=== PATIENT | female | born 1950 | race Caucasian/White ===

== ENCOUNTER → 2016-06-12 05:27 | Day surgery (SDC) | payer MEDICARE ==
[2016-06-10 11:01] LABS: HEMATOCRIT 35.9 % (36.0-48.0); HEMOGLOBIN 11.6 g/dL (12-16); MCH 28.6 pg (26.0-34.0); MCHC 32.3 g/dL (31.0-37.0); MCV 88.6 fL (80.0-100.0); RBC 4.05 10x6/uL (4.00-5.40); RDW 15.1 % (11.5-14.5); WBC 5.6 10x3/uL (4.8-10.8)
[2016-06-10 11:09] LABS: CALC OSMOLALITY 286 mosm/kg (275-300); CALCIUM 9.3 mg/dL (8.5-10.1); CARBON DIOXIDE 33.3 mmol/L (21.0-32.0); CHLORIDE - SERUM 104 mmol/L (98-107); CREATININE - SERUM 0.7 mg/dL (0.6-1.3); GLUCOSE 111 mg/dL (74-106); POTASSIUM - SERUM 3.9 mmol/L (3.5-5.1); SODIUM 142 mmol/L (136-145); UREA NITROGEN 20 mg/dL (7-18); eGFR NON AFRICAN AMERICAN 88 mL/min (90-120)
[~2016-06-12] VITALS: Ht 154.9 cm; Wt 66.7 kg
[~2016-06-12 05:27] MED LIST: BREO ELLIPTA 11 EACH INH; CALCIUM 600+D T1 TA1 PO; COZAAR100 MG PO; FLAGYL500 MG PO; HYDROCHLOROTH12.5 M1 PO; HYDROCODON-ACE1 EAC7 PO; K-TAB10 MEQ PO; LEVAQUIN500 MG PO; MACRODANTIN100 MG PO; METOPROLOL TAR100 M1 PO; METOPROLOL TART50 MG PO; MULTIPLE VITAMI1 TA1 PO; NORVASC5 MG PO; POTASSIUM CHLO10 ME1 PO; PRAVACHOL20 MG; PRAVACHOL20 MG PO; PROTONIX40 MG PO; SYNTHROID75 MCG PO; VITAMIN B-121000 MCG PO; VITAMIN D2000 UNIT PO
[2016-06-12 11:57] VITALS: BP 140/68; Ht 154.9 cm; Wt 66.7 kg
--- NOTE | 2016-07-17 09:40 | OP ---
PATIENT NAME: PAULINO GONSALVES MEDICAL RECORD: [id number] :46 LOCATION:D.OPS ADMISSION DATE: SURGEON: LIBRADO BUCKLEY MD DATE OF OPERATION: 06/12/2016 PREOPERATIVE DIAGNOSES: 1. Abnormal appearance of the rectum on CT scan. The radiologist describes it as some thickening. 2. Melena. 3. Postoperative subcutaneous fluid collection in the suprapubic area. POSTOPERATIVE DIAGNOSES: 1. Abnormal appearance of the rectum on CT scan. The radiologist describes it as some thickening. 2. Melena. 3. Postoperative subcutaneous fluid collection in the suprapubic area. The subcutaneous fluid collection was a liquefied hematoma. 4. Polypoid lesion, which could be scar tissue, a polyp or a polypoid mass at the colorectal anastomosis. PROCEDURES: 1. Total colonoscopy to the cecum. 2. Hot biopsies with cautery of the anastomotic polypoid lesion. 3. Incision and drainage of subcutaneous hematoma, which was well formed and had a rind around it. 4. Tattooing of the polypoid lesion at anastomosis. SURGEON: Librado Buckley MD FAMILY MEMBER CARETAKER: None. BLOOD LOSS: Minimal. ANESTHESIA: General. COMPLICATIONS: None. The risks, possible complications and alternatives to procedure were explained to the patient. She elects to proceed. Her colonic operation was for diverticular disease. I have reviewed the pathology report and there was no evidence of a neoplasm in the resected specimen. This polypoid lesion that was noted today is an unexpected finding and it was right at the anastomosis. OPERATIVE COURSE: The patient was conveyed to the operating room electively on 06/12/2016. General anesthesia was induced by anesthesia staff. The patient was placed in the King position. A digital rectal examination was performed. A colonoscope was inserted through the anus. It was easily advanced to the cecum. Upon withdrawal, I irrigated and aspirated extensively. The prep was excellent. There were a few scattered diverticula. I dragged the folds. The pullback was greater than a 14-minute pullback. A polypoid lesion was a 2.5 cm lesion. This was thoroughly biopsied. There was a secondary of lesion, which was about a 5-mm lesion that was noted several centimeters away on the anastomosis as well. This was biopsied as well. The biopsies were combined OPERATIVE REPORT [id number] PAULINO GONSALVES biopsies. I then cauterized the area. After a thorough cautery of the area for hemostasis, I advanced a sclerotherapy needle. I then performed a submucosal injection of 3 cc of Mar ink at the site where the polypoid lesion had been so that I could identify in the future should resection or further biopsies be indicated. The endoscope was withdrawn into the rectum. A retroflexed views obtained in the rectum. I then unretroflexed the scope and removed it under direct vision. The patient was then positioned supine. The abdomen was sterilely prepped and draped. A small incision was accomplished within the patient's Pfannenstiel scar. I tried to enter a pocket of fluid and was really unable to do so. I had widened my incision. I identified the pocket of fluid and incised into it. There was liquified hematoma without any odor. Cultures were obtained. The liquefied hematoma was aspirated in its entirety. The subdermis was approximated with interrupted 3-0 Vicryls. The skin was approximated with a running intracuticular 3-0 Vicryl. Benzoin and Steri-Strips were applied. The patient was then extubated and conveyed to post-anesthesia care unit where she was in stable condition. As she has an unexpected finding during this operative procedure, I want to see her back in my office on to review the pathology results with her. TRANSINT:[id number] Voice Confirmation ID: [id number] DOCUMENT ID: [id number] LIBRADO BUCKLEY MD at 0940 CC: TANYA BOLDEN MD [id number] DICTATION DATE: 06/12/16 1514 THORACIC MEDICINE PHYSICIAN: 06/12/162007 [facility] 06/12/[address] [facility] [address] [place] [address]
--- NOTE | 2016-07-17 09:40 | HP ---
PATIENT: PALUINO GONSALVES MEDICAL RECORD: [id number] ACCOUNT: [id number] LOCATION:PAULIE : 46 ADMISSION DATE: 06/12/16 HISTORY AND PHYSICAL EXAMINATION CHIEF COMPLAINT: Thickening of the rectal wall on CAT scan, also a postoperative subcutaneous fluid collection. HISTORY OF PRESENT ILLNESS: The patient underwent a hand-assisted laparoscopic sigmoid colectomy on 02/25/2016 due to a history of sigmoid diverticular abscess. The patient's primary care physician is Dr. Garo Aguilar. She now has a subcutaneous mass, which I am going to plan to incise and drain and perhaps place a drain. Also, perform a colonoscopy. She has had some melena. A CT scan was performed and it was suspicious for a rectal lesion and some thickening of the rectum. I have personally reviewed the CT images. The CT scan revealed a 9.4 cm fluid collection in the anterior abdominal wall superficial to the rectus musculature, most consistent with a seroma. This was on 04/15/2016. There is interval partial sigmoid resection with a satisfactory appearance of the anastomosis with surrounding inflammatory changes. There is asymmetric thickening of the rectal wall, which was nonspecific and raised the concern for malignancy. This had a similar appearance on a previous study. Endoscopy was recommended for better evaluation. HOME MEDICATIONS: Last list of home medicines I have for the patient includes B12, Cozaar, hydrochlorothiazide, levothyroxine, metoprolol, omeprazole, pravastatin, Protonix, and vitamin D3. PAST MEDICAL AND SURGICAL HISTORY: Hyperlipidemia, gastroesophageal reflux, hypertension, hypothyroidism, on replacement therapy, thyroid nodule, essential bradycardia, urinary tract infectious diseases, actinic keratoses, hip pain, low back pain, malaise, fatigue, and loss of appetite. As described above, also hysterectomy, also colonoscopy by Dr. Powell in 2000. FAMILY HISTORY: Father had a cerebrovascular accident. Mother had history of vascular accident as well as hypertensive disorder. SOCIAL HISTORY: Homemaker. She has never smoked. PHYSICAL EXAMINATION: GENERAL: No fever or chills. ALLERGIES: CODEINE AND MORPHINE. PHYSICAL EXAMINATION: GENERAL: The patient does not appear acutely ill. She does not appear chronically ill. VITAL SIGNS: Reviewed. HEAD: External ears appear normal. EYES: Extraocular movements are intact. NECK: Trachea is midline. CHEST: No intercostal retractions. PULMONARY: Nonlabored, no stridor. ABDOMEN: Nontender except over the subcutaneous mass which is in the suprapubic area just to the right. HISTORY AND PHYSICAL [id number] PAULINO GONSALVES IMPRESSION: 1. Suspicious area on CT scan with thickening of the rectal wall. We need to rule out malignancy. 2. Postoperative subcutaneous fluid collection, likely a seroma or hematoma. PLAN: Drainage and subcutaneous fluid collection, postoperative. Also, colonoscopy. TRANSINT:[id number] Voice Confirmation ID: [id number] DOCUMENT ID: [id number] LIBRADO BUCKLEY MD at 0940 CC: [id number] DICTATION DATE: 06/12/16 1238 GROUP LEADER SEMICONDUCTOR PROCESSING: 06/12/16 1329 [facility] 06/12/[address] [address]
== END | disposition home or self-care (01) ==
LOC: D.OPS 05:27 → D.PAN 12:30 → D.OPS 12:30 → D.PAN 13:45
PROVIDERS: Anesthesiology
DX: K63.5 Polyp of colon (principal); L76.32 Postprocedural hematoma of skin and subcutaneous tissue following other procedure; Z88.5 Allergy status to narcotic agent

== ENCOUNTER → 2016-08-17 16:36 | Outpatient (CLI) | payer MEDICARE ==
[2016-06-12 11:57] VITALS: BMI 27.8
== END | disposition home or self-care (01) ==
LOC: D.MAMMO 13:15
DX: Z12.31 Encounter for screening mammogram for malignant neoplasm of breast (principal)

== ENCOUNTER 2017-01-18 14:23 | Inpatient (IN) | payer MEDICARE ==
--- NOTE | 2017-01-18 18:15 | NUR ---
RECEIVED TO ROOM 2207 VIA . A/O X3. DENIES NEEDS. AT BEDSIDE. DENIES NEEDS. REPORTS ABDOMINAL PAIN AT LEVEL 8. SKIN IS INTACT WTIHOUT REDNESS.
[2017-01-18 18:41] VITALS: BP 113/74
[2017-01-18 19:21] LABS: BASOPHILS 0 % (0-2); EOSINOPHILS 0 % (0-7); HEMATOCRIT 36.2 % (36.0-48.0); HEMOGLOBIN 12.3 g/dL (12-16); IMMATURE GRANULOCYTES 0.5 % (0-5); LYMPHOCYTES 6.9 % (15-50); MCH 29.7 pg (26.0-34.0); MCV 87.4 fL (80.0-100.0); MONOCYTES 3.7 % (2-11); NEUTROPHILS 88.9 % (40-80); RBC 4.14 10x6/uL (4.00-5.40); RDW 14.5 % (11.5-14.5); WBC 17.2 10x3/uL (4.8-10.8)
[2017-01-18 19:25] LABS: PLATELET COUNT 201 10x3/uL (130-400)
--- NOTE | 2017-01-18 19:40 | NUR ---
RECIEVED SHIFT REPORT. PT IS LYING IN BED. ALERT AND ORIENTED AND ABLE TO VERBALIZE NEEDS. PT IS AMBULATORY BUT WAS INSTRUCTED TO CALL FOR ANY ASSISTANCE NEEDED. PT STATES PAIN IS 9/10. NO NEEDS ARE VERBALIZED AT THIS TIME. WILL CONTINUE TO MONITOR. VISITOR IS AT THE BEDSIDE. SIDE RAILS ARE UP X 2. BED IS IN LOWEST POSITION. CALL LIGHT IS WITHIN REACH.
[2017-01-18 19:42] LABS: INR 3.27 (0.85-1.17); PROTIME 33.6 SECONDS (11.6-15.0)
[2017-01-18 20:00] LABS: ALBUMIN 3.6 g/dL (3.4-5.0); ANION GAP 14.7 mmol/L (8-16); BILIRUBIN - TOTAL 1.2 mg/dL (0.2-1.3); CALCIUM 9.1 mg/dL (8.5-10.1); CARBON DIOXIDE 26.6 mmol/L (21.0-32.0); CREATININE - SERUM 1.6 mg/dL (0.6-1.3); POTASSIUM - SERUM 3.3 mmol/L (3.5-5.1); PROTEIN - SERUM 6.4 g/dL (6.4-8.2)
--- NOTE | 2017-01-18 20:20 | NUR ---
ADMIT ASSESSMENT COMPLETED. IV SITED TO RIGHT WRIST X 1 ATTEMPT. 20G. GOOD BLOOD RETURN. FLUSHES W/O DIFFICULTY. HOMICIDE SQUAD COMMANDING OFFICER INITIATED. CALL PLACED TO HEBER DUE TO PT BEING ORDERED MORPHINE HOMICIDE SQUAD COMMANDING OFFICER AND PT IS ALLERGIC. NEW ORDERS RECIEVED. FLUID BOLUS STARTED PER ORDER. NO NEEDS ARE VOICED. WILL MONITOR. VISITOR AT BEDSIDE. SIDE RAILS X 2. BED LOW. CALL LIGHT IN REACH.
--- NOTE | 2017-01-18 20:37 | NUR ---
DILAUDID AUTO DESIGN DETAILER HOOKED UP PER ORDER. PT INSTRUCTED ON USE. ORDER FOR HOLBROOK CATHETER. PT REQUESTING TO NOT HAVE HOLBROOK PLACED UNTIL TOMORROW. NO FURTHER NEEDS AT THIS TIME. WILL MONITOR. SIDE RAILS X 2. BED LOW. CALL LIGHT IN REACH.
[2017-01-18 22:27] VITALS: BP 116/64
[2017-01-19] VITALS: BP 126/61
[2017-01-19 02:31] VITALS: BP 113/74; BMI 26.8
[2017-01-19 04:07] LABS: BASOPHILS 0 % (0-2); EOSINOPHILS 0 % (0-7); HEMATOCRIT 31.4 % (36.0-48.0); HEMOGLOBIN 10.5 g/dL (12-16); IMMATURE GRANULOCYTES 0.2 % (0-5); LYMPHOCYTES 5.4 % (15-50); MCH 29.4 pg (26.0-34.0); MCHC 33.4 g/dL (31.0-37.0); MONOCYTES 4.4 % (2-11); PLATELET COUNT 188 10x3/uL (130-400); RBC 3.57 10x6/uL (4.00-5.40); RDW 14.5 % (11.5-14.5)
[2017-01-19 04:20] LABS: ANION GAP 10.6 mmol/L (8-16); CALCIUM 8.3 mg/dL (8.5-10.1); CARBON DIOXIDE 25.7 mmol/L (21.0-32.0); CREATININE - SERUM 1.2 mg/dL (0.6-1.3); POTASSIUM - SERUM 3.3 mmol/L (3.5-5.1)
--- NOTE | 2017-01-19 07:30 | NUR ---
PT ASSESSMENT COMPLETE NO DISTRESS NOTED SEE FLOWSHEET CALL LIGHT IN REACH SIDE RAILS UP X 2 ALL ALDS PER STAFF ASSIST. NPO FOR OR TODAY WITH DR BUCKLEY FOR EXPLORATORY LAP WITH REINIER ROLAND PROCEEDURE.
[2017-01-19 08:34] VITALS: BP 118/59
--- NOTE | 2017-01-19 10:07 | NUR ---
Patient Name: PAULINO GONSALVES Admission Status: Elective Accout number: [id number] Admission Date: 01-18-2017 : 1950 Admission Diagnosis: Attending: TANYA BOLDEN Current LOS: 1 Anticipated DC Date: Planned Disposition: Home Primary Insurance: MEDICARE A & B Discharge Planning Comments: CM met with patient to assess discharge planning needs. Patient lives independently at home with her . She stated that she is independent with her daily care and denies any need of HH at this time. She did state that she has had HH in the past and used [facility]. Patient has 5 steps to enter in her home with a rail. Patient has a cane, walker, wheelchair, shower chair. CM will continue to follow and assist with discharge planning needs. PCP: Yuan Fields in [facility] () [phone] Jewel Gauger: Hayley Byrne * Is the patient Alert and Oriented? Yes 0 * How many steps to enter\exit or inside your home? 5 0 * PCP YUAN 0 * Pharmacy [facility] 0 * Preadmission Environment Home with Family 0 * ADLs Independent 0 * Equipment Cane Elevated [place] Seat Shower Chair Walker Wheelchair 0 * List name and contact numbers for known caregivers / representatives who currently or will assist patient after discharge: NINI () [phone] 0 * Community resources currently utilized None 0 * Please name any agencies selected above. HAS USED [facility] IN THE PAST 0 * Additional services required to return to the preadmission environment? No 0 * Has this patient been hospitalized within the prior 30 days at any hospital? No 0 Grand Total: 0
--- NOTE | 2017-01-19 10:30 | NUR ---
NO DISTRESS NOTED REMAINS NPO AWAITING SURGERY
[2017-01-19 11:45] VITALS: BP 125/64
--- NOTE | 2017-01-19 12:00 | NUR ---
PT PREOPPED FOR OR HOLBROOK CATH PLACED PER STERILE TECHNIQUE ALL PARTS OF KIT USED TOLERATED WELL IMMEDIATE RETURN OF CONCENTRATED YELLOW URINE TO DRAIN BAG.
[2017-01-19 13:37] VITALS: BMI 30.3
--- NOTE | 2017-01-19 14:40 | NUR ---
LAPAROSCOPIC LAVAGE AND DRAIN PLACEMENT
--- NOTE | 2017-01-19 14:42 | NUR ---
20CC OF PINK FLUID REMOVED FROM #1 YOLI DRAIN AND 80CC REMOVED FROM YOLI#2 @3704
[2017-01-19 15:00] VITALS: BP 118/60
--- NOTE | 2017-01-19 16:45 | NUR ---
PT RETURNED TO ROOM FROM RR NGT TO RIGHT NARE TO LIWS DRAINS X 2 NOTED TO ABDOMEN DRESSING X 3
--- NOTE | 2017-01-19 19:14 | NUR ---
PT IS LYING IN BED WITH TV ON. SPOUSE IN CHAIR AT BEDSIDE. PT STATED PAIN IS AT A 1 AND AIR/OCEAN EXPORT CLERK IS HELPING. BREATH SOUNDS CLEAR IN UPPER AND LOWER LOBES. NO SIGNS OF DISTRESS, BED IN LOW POSITION CALL LIGHT IN REACH, CONTINUE WITH CARE PLAN
[2017-01-19 20:00] VITALS: BP 121/62
[2017-01-20] VITALS: BP 133/72
--- NOTE | 2017-01-20 02:00 | NUR ---
PT IN BED WITH NO DISTRESS. RESPIRATIONS EVEN AND UNLABORED. VISITOR AT BEDSIDE. SIDE RAILS X 2. BED IS LOW. CALL LIGHT IN REACH.
[2017-01-20 04:00] VITALS: BP 145/66
[2017-01-20 04:56] LABS: BASOPHILS 0.1 % (0-2); EOSINOPHILS 0.6 % (0-7); HEMATOCRIT 31.5 % (36.0-48.0); HEMOGLOBIN 10.7 g/dL (12-16); IMMATURE GRANULOCYTES 0.3 % (0-5); LYMPHOCYTES 9.9 % (15-50); MCH 29.9 pg (26.0-34.0); MONOCYTES 5.8 % (2-11); NEUTROPHILS 83.3 % (40-80); PLATELET COUNT 187 10x3/uL (130-400); RBC 3.58 10x6/uL (4.00-5.40); RDW 14.6 % (11.5-14.5); WBC 10.4 10x3/uL (4.8-10.8)
[2017-01-20 05:07] LABS: ANION GAP 11.9 mmol/L (8-16); CALCIUM 8.4 mg/dL (8.5-10.1); CARBON DIOXIDE 22.8 mmol/L (21.0-32.0); POTASSIUM - SERUM 3.7 mmol/L (3.5-5.1)
--- NOTE | 2017-01-20 07:10 | NUR ---
AWAKE AND ALERT AT THIS TIME. RESPIRATIONS EVEN AND NON LABORED. NG TUBE TO RIGHT NARE PATENT AND CONNECTED TO LOW INTERMITTENT SUCTION. HOLBROOK AND YOLI DRAINS PATENT. SCD'S ON AND CALL LIGHT IN REACH. BLOWER INSTALLER IN USE. DENIES NEEDS AT THIS TIME. PT REMAINS NPO. WILL CONTINUE WITH PLAN OF CARE.
--- NOTE | 2017-01-20 07:11 | HP ---
PATIENT: PAULINO GONSALVES MEDICAL RECORD: [id number] ACCOUNT: [id number] LOCATION:D.MS [place]7 : 46 ADMISSION DATE: 01/18/17 HISTORY AND PHYSICAL EXAMINATION DATE OF ADMISSION: 01/18/2017 CHIEF COMPLAINT: Abdominal pain. HISTORY OF PRESENT ILLNESS: The patient is a 66-year-old female who states for the past couple of days, she has had decreasing appetite, low-grade fever, also complained of diffuse lower abdominal discomfort. PAST MEDICAL HISTORY: Significant that she has had history of arthritis. She has had hypertension and hyperlipidemia. She is also postmenopausal, . PAST SURGICAL HISTORY: The patient has had a hysterectomy as well. She has also had part of her sigmoid colon resected in the past secondary to diverticulitis. MEDICATIONS: Include Cozaar 100 mg once a day, HCTZ 12.5 once a day, levothyroxine 75 mcg once a day, metoprolol tartrate 100 mg p.o. b.i.d., Norvasc 5 mg 1 p.o. q. day, Prilosec 20 mg 1 p.o. q. day, KCl 10 mEq once a day, pravastatin 20 mg once a day. ALLERGIES: THE PATIENT HAS ALLERGIES TO CODEINE. SOCIAL HISTORY: The patient is . She is currently retired, grown up in the [place] area. She is also educated through the 12th grade. She has worked as a homemaker in the past. She denies any ethanol, tobacco use or abuse. FAMILY HISTORY: Father had a CVA. Also, mother had brain tumor. REVIEW OF SYSTEMS: CONSTITUTIONAL: She denies any headaches, seizures or syncope. She denies change in visual or auditory acuity. PULMONARY: She denies any shortness of breath, cough or congestion, history of TB, asthma or bronchitis. CARDIOVASCULAR: No chest pain, palpitations, PND or orthopnea. GASTROINTESTINAL: Decreased appetite. GENITOURINARY: No urgency, frequency or dysuria. PHYSICAL EXAMINATION: VITAL SIGNS: The patient's weight was 156, her blood pressure is 122/70, her pulse is 76, respirations were 16, temperature 98.3. GENERAL: She is alert. She is oriented times 3. HEENT: Normal. NECK: Supple. There is no adenopathy. HEART: Had a regular rate without murmurs, gallops or rub. LUNGS: Clear. ABDOMEN: Soft. She had some right lower quadrant tenderness with suprapubic tenderness present. LABORATORY DATA: The patient had a white blood cell count elevated with white HISTORY AND PHYSICAL [id number] PAULINO GONSALVES count of 15,000 with a left shift. She was sent over for a CT scan of the abdomen. CT revealed intraperitoneal free air concerning for perforated viscus, no leakage of oral contrast was seen. She did have diverticulosis with evidence of diverticulitis, moderate dilated small bowel. ASSESSMENT: Abdominal pain with leukocytosis, felt to be secondary to perforated viscus, small bowel obstruction, diverticulitis. PLAN: The patient is admitted, placed on appropriate antibiotics, IV hydration, pain medication, placed n.p.o. Surgery consultation was obtained. TRANSINT:[id number] Voice Confirmation ID: [id number] DOCUMENT ID: [id number] TANYA BOLDEN MD at 0711 CC: [id number] DICTATION DATE: 01/19/17714 ICU NURSE: 01/19/17 0829 ADM IN [facility] [address] [place] [address]
--- NOTE | 2017-01-20 07:15 | NUR ---
AWAKE AND ALERT WITH RESPIRATIONS EVEN AND NON LABORED. DENIES NEEDS AT THIS TIME. CPM AND BED ALARM ON. CALL LIGHT IN REACH, BED IN LOWEST POSITION WITH WHEELS LOCKED AND SRX2. WILL CONTINUE WITH PLAN OF CARE.
[2017-01-20 07:53] VITALS: BP 152/76
--- NOTE | 2017-01-20 09:12 | NUR ---
SCHEDULED MEDICATIONS ADMINISTERED AT THIS TIME. PT DENIES NEEDS AT THIS TIME. CALL LIGHT IN REACH, WILL CONTINUE WITH PLAN OF CARE.
[2017-01-20 12:00] VITALS: BP 138/72
--- NOTE | 2017-01-20 12:39 | NUR ---
SCHEDULED ANTIBIOTIC ADMINISTERED AT THIS TIME PER ORDER. FAMILY REMAINS AT BEDSIDE. CALL LIGHT IN REACH, WILL CONTINUE WITH PLAN OF CARE.
--- NOTE | 2017-01-20 15:00 | NUR ---
NG TUBE PLACEMENT CHECKED AT THIS TIME WITH AIR BOLUS AND ASCULTATION. AIR BOLUS ASCULTATED IN STOMACH. NG TUBE TO RIGHT NARE WITH NO DRAINAGE.
[2017-01-20 16:35] VITALS: BP 164/87
--- NOTE | 2017-01-20 19:40 | NUR ---
RECIEVED SHIFT REPORT. PT IS LYING IN BED. ALERT AND ORIENTED AND ABLE TO VERBALIZE NEEDS. IV IS PATENT AND FLUIDS ARE RUNNING PER ORDER. HOLBROOK IS DRAINING URINE BY GRAVITY. NGT TO RIGHT NARE PATENT AND CONNECTED TO LIWS. PT IS AMBULATORY WITH ASSISTANCE. PT STATES PAIN IS 1/10 WITH MACHINING ASSOCIATE PUMP. SCD'S ON. DRESSING TO ABDOMEN C/D/I. YOLI DRAINS X 2 PATENT WITH SITES C/D AND BULBS COMPRESSED. NO NEEDS ARE VERBALIZED AT THIS TIME. WILL CONTINUE TO MONITOR. IS AT THE BEDSIDE. SIDE RAILS ARE UP X 2. BED IS IN LOWEST POSITION. CALL LIGHT IS WITHIN REACH.
[2017-01-20 20:00] VITALS: BP 168/75
--- NOTE | 2017-01-20 20:50 | NUR ---
SHIFT ASSESSMENT COMPLETED. ANTIBIOTIC HUNG PER ORDER. NO NEEDS ARE VOICED. AT BEDSIDE. SIDE RAILS X 2. BED LOW. CALL LIGHT IN REACH.
[2017-01-21 04:00] VITALS: BP 143/64
[2017-01-21 04:07] LABS: BASOPHILS 0.1 % (0-2); HEMATOCRIT 33.2 % (36.0-48.0); HEMOGLOBIN 11.1 g/dL (12-16); IMMATURE GRANULOCYTES 0.7 % (0-5); LYMPHOCYTES 7.5 % (15-50); MCH 29.2 pg (26.0-34.0); MCHC 33.4 g/dL (31.0-37.0); MCV 87.4 fL (80.0-100.0); MEAN PLATELET VOLUME 10.7 fL (7.4-10.4); MONOCYTES 7.1 % (2-11); NEUTROPHILS 83.6 % (40-80); RDW 14.9 % (11.5-14.5); WBC 11.1 10x3/uL (4.8-10.8)
[2017-01-21 04:15] LABS: PLATELET COUNT 244 10x3/uL (130-400)
[2017-01-21 04:33] LABS: CALCIUM 8.2 mg/dL (8.5-10.1); CARBON DIOXIDE 19.5 mmol/L (21.0-32.0); CHLORIDE - SERUM 105 mmol/L (98-107); PHOSPHOROUS 2.1 mg/dL (2.5-4.9); POTASSIUM - SERUM 3.3 mmol/L (3.5-5.1); SODIUM 139 mmol/L (136-145); eGFR NON AFRICAN AMERICAN 88 mL/min (90-120)
[2017-01-21 04:34] LABS: CALC OSMOLALITY 274 mosm/kg (275-300); CREATININE - SERUM 0.7 mg/dL (0.6-1.3); GLUCOSE 66 mg/dL (74-106); UREA NITROGEN 11 mg/dL (7-18)
--- NOTE | 2017-01-21 07:05 | NUR ---
AWAKE AND ALERT. NG TUBE REMAINS TO RIGHT NARE. AIR BOLUS ASCULTATED IN STOMACH. PAVING INSPECTOR IN USE FOR PAIN AND RESIRATIONS EVEN AND NON LABORED. CALL LIGHT IN REACH, WILL CONTINUE WITH PLAN OF CARE.
[2017-01-21 08:14] VITALS: BP 158/67
--- NOTE | 2017-01-21 09:56 | NUR ---
ELECTROLYTE PROTOCOL INITIATED AT THIS TIME PER PROTOCOL. PT DENIES NEEDS AT PRESENT TIME. SENIOR PHYSICIAN IN USE FOR PAIN AND CALL LIGHT IN REACH. WILL CONTINUE WITH PLAN OF CARE.
--- NOTE | 2017-01-21 12:04 | NUR ---
SCHEDULED FLAGYL ADMINISTERED AT THIS TIME. DENIES NEEDS AT THIS TIME. IV REMAINS PATENT. CALL LIGHT IN REACH, WILL CONTINUE WITH PLAN OF CARE.
[2017-01-21 12:45] VITALS: BP 160/64
--- NOTE | 2017-01-21 13:06 | NUR ---
NUTRITION F/U PT REMAINS NPO. WILL PROVIDE DIET WHEN ADVANCED, MONITOR PO INTAKE. RD FOLLOWING
--- NOTE | 2017-01-21 15:45 | NUR ---
HOLBROOK CATHETER D/C WITH CATH TIP INTACT PER ORDER.
[2017-01-21 16:25] VITALS: BP 164/59
--- NOTE | 2017-01-21 17:05 | NUR ---
PT REPORTS THAT SHE PASSES GAS AT THIS TIME.
--- NOTE | 2017-01-21 18:15 | NUR ---
voided in bedside commode without difficulty. had small, brown and loose bowel movement.
[2017-01-21 20:00] VITALS: BP 165/78
[2017-01-22] VITALS: BP 166/82
[2017-01-22 04:00] VITALS: BP 171/78
[2017-01-22 05:50] LABS: BASOPHILS 0.1 % (0-2); EOSINOPHILS 0.9 % (0-7); HEMATOCRIT 33.8 % (36.0-48.0); HEMOGLOBIN 11.3 g/dL (12-16); IMMATURE GRANULOCYTES 1.5 % (0-5); LYMPHOCYTES 9.6 % (15-50); MCH 28.8 pg (26.0-34.0); MCHC 33.4 g/dL (31.0-37.0); MCV 86.2 fL (80.0-100.0); MEAN PLATELET VOLUME 9.8 fL (7.4-10.4); MONOCYTES 8.7 % (2-11); NEUTROPHILS 79.2 % (40-80); PLATELET COUNT 252 10x3/uL (130-400); RBC 3.92 10x6/uL (4.00-5.40); RDW 15.1 % (11.5-14.5); WBC 11.8 10x3/uL (4.8-10.8)
[2017-01-22 06:17] LABS: CALC OSMOLALITY 271 mosm/kg (275-300); CALCIUM 8.4 mg/dL (8.5-10.1); CARBON DIOXIDE 15.9 mmol/L (21.0-32.0); CHLORIDE - SERUM 106 mmol/L (98-107); CREATININE - SERUM 0.7 mg/dL (0.6-1.3); GLUCOSE 78 mg/dL (74-106); SODIUM 137 mmol/L (136-145); UREA NITROGEN 11 mg/dL (7-18); eGFR NON AFRICAN AMERICAN 88 mL/min (90-120)
[2017-01-22 06:22] LABS: POTASSIUM - SERUM 3.9 mmol/L (3.5-5.1)
--- NOTE | 2017-01-22 07:10 | NUR ---
AWAKE AND ALERT. ASSISTED UP TO BEDSIDE COMMODE AND BACK TO BED. NGT TUBE PATENT AND AIR BOLUS ASCULTATED. APPLIANCE COUNSELOR IN USE FOR PAIN. CALL LIGHT IN REACH, WILL CONTINUE WITH PLAN OF CARE.
[2017-01-22 08:07] VITALS: BP 172/90
--- NOTE | 2017-01-22 08:30 | NUR ---
PRN ZOFRAN ADMINISTERED FOR COMPLAINTS OF NAUSEA. NG TUBE CONNECTED TO LOW INTERMITTENT WALL SUCTION WITH NO OUTPUT.
--- NOTE | 2017-01-22 09:49 | OP ---
PATIENT NAME: PAULINO GONSALVES MEDICAL RECORD: [id number] :46 LOCATION:D.MS [id number] ADMISSION DATE:01/18/17 SURGEON: KEVIN BUCKLEY MD DATE OF OPERATION: 01/19/2017 PREOPERATIVE DIAGNOSES: 1. Peritonitis. 2. Pneumoperitoneum. POSTOPERATIVE DIAGNOSES: 1. Peritonitis. 2. Pneumoperitoneum with probable perforated duodenal ulcer with diffuse peritonitis. PROCEDURE: Exploratory laparoscopy with abdominal lavage and placement of drain. SURGEON: Kevin Buckley MD HIGH SCHOOL FRENCH TEACHER: None. BLOOD LOSS: Minimal. ANESTHESIA: General. COMPLICATIONS: None. The risks, possible complications and alternatives to procedure were explained to the patient. She elects to proceed. OPERATIVE COURSE: The patient was conveyed to the operating room electively on 01/19/2017. General anesthesia was induced by anesthesia staff. The abdomen was sterilely prepped and draped. A small skin incision was accomplished in the left upper quadrant. A Veress needle was inserted through the skin incision into the peritoneal cavity. CO2 insufflation was begun. Once a sufficient pneumoperitoneum had been achieved, a 5-mm trocar was inserted through an incision in the left upper quadrant. Under direct internal vision utilizing television camera, two 8-mm trocars were inserted in the central abdomen, one to the right of the umbilicus, one to the left of the umbilicus. During insertion of the Veress needle and all trocars, there appeared to have been no injury to the bowels, any intraperitoneal or retroperitoneal structures. Purulence was identified. Bowel was identified as well. I began adhesiolysis in the pelvis. I also examined the anterior portion of the stomach as well as the duodenum. I could not find a duodenal perforation. However, when I manipulated the duodenum and the stomach, there appeared to be more bile in the upper abdomen. There was bile along the right gutter. When I dissected down into the pelvis, I detected no feculent material. There was some exudate over dilated portions of the small bowel. I aspirated some of the bilious fluid. It did not have the smell to it. It did not smell feculent. Although, I am still not sure whether the patient had a perforated sigmoid diverticulum or has a perforated duodenal ulcer, I think that the treatment for right now is going to be the same and that is going to be IV proton pump inhibitor therapy as well as IV antibiotics as well as lavage and placement of OPERATIVE REPORT [id number] PAULINO GONSALVES the drains. Extensive lavage was performed in all quadrants. Through the 8-mm trocars 19-Salvadorean round Ryan drains were advanced. One was placed down in the pelvis. The other one was placed along the acute margin of the liver. All trocars were removed and the abdomen desufflated. The skin incision in the left upper quadrant was closed with a single interrupted intracuticular 3-0 Vicryl. The other skin incisions were closed with interrupted intracuticular 3-0 Vicryls. The drains were sutured to skin with 3-0 nylons. Sterile dressings were applied. The patient was then extubated and conveyed to post-anesthesia care unit where she was in stable condition. If her condition improves, then likely will be something we can manage initially without another operation. If her condition deteriorates, then she will require an exploratory laparotomy. TRANSINT:[id number] Voice Confirmation ID: [id number] DOCUMENT ID: [id number] KEVIN BUCKLEY MD at 0949 CC: [id number] DICTATION DATE: 01/19/17 1619 LINING FELLER BLINDSTITCH: 01/19/17 2233 ADM IN [place] [id number] [place] [address]
[2017-01-22 11:55] VITALS: BP 177/87
[2017-01-22 16:00] VITALS: BP 179/92
[2017-01-22 20:00] VITALS: BP 170/89
--- NOTE | 2017-01-22 23:30 | NUR ---
ASSESSED, PT WAS UP TO THE BSC WITH THE ASSIST OF THE NURSING STAFF. SHE HAS COMPANY AT THE BED SIDE AND EVERYONE SEEMED TO BE DOING WELL AND IN A GOOD MOOD TALKING. THE BED IS LOW, RAILS UP X'S 2 WITH THE CALL LIGHT AT HAND.
[2017-01-23] VITALS (7 sets, daily range): BP systolic 149–169; BP diastolic 67–87
[2017-01-23 05:13] LABS: ALKALINE PHOSPHATASE 60 U/L (46-116); ALT (SGPT) 16 U/L (10-68); CALC OSMOLALITY 275 mosm/kg (275-300); CALCIUM 8.3 mg/dL (8.5-10.1); CARBON DIOXIDE 18.7 mmol/L (21.0-32.0); CHLORIDE - SERUM 109 mmol/L (98-107); CREATININE - SERUM 0.6 mg/dL (0.6-1.3); GLUCOSE 74 mg/dL (74-106); MAGNESIUM - SERUM 1.9 mg/dL (1.8-2.4); PHOSPHOROUS 1.8 mg/dL (2.5-4.9); PROTEIN - SERUM 5.3 g/dL (6.4-8.2); SODIUM 139 mmol/L (136-145); UREA NITROGEN 11 mg/dL (7-18); eGFR NON AFRICAN AMERICAN > 90 mL/min (90-120)
[2017-01-23 05:14] LABS: POTASSIUM - SERUM 3.3 mmol/L (3.5-5.1)
--- NOTE | 2017-01-23 07:55 | NUR ---
PT AOX4 RESP EVEN AND NONLABORED PT DENIES NEEDS AT THIS TIME SRX2 BED AT LOWEST SETTING CALL LIGHT WITHIN REACH WILL CONTINUE TO MONITOR
--- NOTE | 2017-01-23 19:59 | NUR ---
PATIENT RESTING IN BED WITH GUEST AT BEDSIDE. ASSISTED PT TO AND FROM RESTROOM. COMPLETED ASSESSMENT. PATIENT DENIES NEEDS AT THIS TIME. BED IN LOWEST POSITION AND CALL LIGHT WITHIN REACH. ENCOURAGED THE PATIENT TO CALL IF SHE HAS NEEDS.
[2017-01-24 04:00] VITALS: BP 157/88
[2017-01-24 05:40] LABS: BASOPHILS 0.3 % (0-2); EOSINOPHILS 3.8 % (0-7); HEMATOCRIT 33.3 % (36.0-48.0); HEMOGLOBIN 11.3 g/dL (12-16); IMMATURE GRANULOCYTES 10.6 % (0-5); MCHC 33.9 g/dL (31.0-37.0); MCV 85.4 fL (80.0-100.0); MEAN PLATELET VOLUME 9.3 fL (7.4-10.4); MONOCYTES 10.6 % (2-11); NEUTROPHILS 56.7 % (40-80); PLATELET COUNT 290 10x3/uL (130-400); RDW 15.3 % (11.5-14.5)
[2017-01-24 05:45] LABS: WBC 7.3 10x3/uL (4.8-10.8)
[2017-01-24 06:02] LABS: CALCIUM 7.8 mg/dL (8.5-10.1); CARBON DIOXIDE 16.7 mmol/L (21.0-32.0); CHLORIDE - SERUM 106 mmol/L (98-107); CREATININE - SERUM 0.6 mg/dL (0.6-1.3); POTASSIUM - SERUM 3.5 mmol/L (3.5-5.1); SODIUM 138 mmol/L (136-145); eGFR NON AFRICAN AMERICAN > 90 mL/min (90-120)
[2017-01-24 06:07] LABS: CALC OSMOLALITY 271 mosm/kg (275-300); GLUCOSE 66 mg/dL (74-106); UREA NITROGEN 8 mg/dL (7-18)
--- NOTE | 2017-01-24 08:00 | NUR ---
PT AOX4 REST EVEN AND NONLABORED PT DENIES NEEDS AT THIS TIME AT THIS TIME SRX2 BED AT LOWEST SETTING IV TO LEFT FOREARM PATENT AND INTACT AT THIS TIME WILL CONTINUE TO MONITOR
[2017-01-24 08:10] VITALS: BP 175/92
[2017-01-24 11:52] VITALS: BP 183/98
[2017-01-24 16:13] VITALS: BP 169/90
--- NOTE | 2017-01-24 19:45 | NUR ---
PATIENT RESTING IN BED AND REQUESTED HER DOOR BE LEFT OPEN. PATIENT DENIES OTHER NEEDS AT THIS TIME. BED IN LOWEST POSTION AND CALL LIGHT WITHIN REACH. ENCOURAGED THE PATIENT TO CALL IF SHE HAS NEEDS.
[2017-01-24 21:22] VITALS: BP 178/94
[2017-01-25] VITALS: BP 164/85
[2017-01-25 04:00] VITALS: BP 178/68
--- NOTE | 2017-01-25 07:35 | NUR ---
ASSESSMENT PER FLOW SHEET.PT WITHOUT DISTRESS.ASSISTED UP TO BEDSIDE COMMODE.PT WITHOUT DISTRESS.NPO. CALL LIGHT IN REACH
[2017-01-25 08:00] VITALS: BP 188/97
[2017-01-25 12:14] VITALS: BP 149/83
--- NOTE | 2017-01-25 12:24 | NUR ---
MULTIPLE DARK GREEN WATERY STOOLS THIS AM.
--- NOTE | 2017-01-25 15:21 | NUR ---
UP TO BATHROOM,STOOLS AGAI. REMAINS WITHOUT DISTRESS. REMAINS WITHOUT EMESIS.
--- NOTE | 2017-01-25 15:41 | NUR ---
NGT DCD ORDERED. CLEAR LIQUID DIET INITIATED. PT UP IN CHAIR WITHOUT DISTRESS.
--- NOTE | 2017-01-25 17:10 | NUR ---
TOLERATING CL DIET WITHOUT ANY PROBLEMS.
[2017-01-25 17:31] VITALS: BP 160/91
--- NOTE | 2017-01-25 19:00 | NUR ---
REPORT RECEIVED AND ASSESSMENT COMPLETED. FAMILY IN PT ROOM AT THIS TIME. UPDATED ON PT STATUS. WILL MONITOR FOR CHANGES
[2017-01-25 20:00] VITALS: BP 151/83
--- NOTE | 2017-01-25 21:00 | NUR ---
2100 MEDS GIVEN. PT ASSISTED TO BATHROOM AT THIS TIME.
--- NOTE | 2017-01-25 23:00 | NUR ---
NO CHANGES IN STATUS AT THIS TIME. WILL CONTINUE TO MONITOR
[2017-01-26] VITALS: BP 152/70
--- NOTE | 2017-01-26 01:00 | NUR ---
PT SLEEPING IN ROOM. NO CHANGES IN STATUS TO REPORT. BED IN LOW POSITION CALL LIGHT IN REACH WILL CONTINUE TO MONITOR
--- NOTE | 2017-01-26 03:00 | NUR ---
LAB AT BEDSIDE FOR AM DRAW. NO OTHER CHANGES AT THIS TIME. WILL MONITOR
[2017-01-26 04:00] VITALS: BP 170/82
[2017-01-26 04:41] LABS: BASOPHILS 0.2 % (0-2); EOSINOPHILS 1.5 % (0-7); HEMATOCRIT 32.5 % (36.0-48.0); HEMOGLOBIN 11.2 g/dL (12-16); LYMPHOCYTES 17.9 % (15-50); MCH 29.3 pg (26.0-34.0); MCHC 34.5 g/dL (31.0-37.0); MCV 85.1 fL (80.0-100.0); MEAN PLATELET VOLUME 9.4 fL (7.4-10.4); MONOCYTES 11.1 % (2-11); NEUTROPHILS 62.3 % (40-80); RBC 3.82 10x6/uL (4.00-5.40); WBC 8.6 10x3/uL (4.8-10.8)
[2017-01-26 04:50] LABS: PLATELET COUNT 407 10x3/uL (130-400)
--- NOTE | 2017-01-26 05:00 | NUR ---
I&O COLLECTED. NO CHANGES IN PT STATUS AT THIS TIME. WILL CONTINUE TO MONITOR
--- NOTE | 2017-01-26 05:00 | NUR ---
ASSISTED TO RESTROOM. 1 BM PRODUCED. I&O COLLECTED AND POSTED.
[2017-01-26 05:21] LABS: CALC OSMOLALITY 279 mosm/kg (275-300); CALCIUM 8.1 mg/dL (8.5-10.1); CARBON DIOXIDE 19.4 mmol/L (21.0-32.0); CHLORIDE - SERUM 111 mmol/L (98-107); GLUCOSE 74 mg/dL (74-106); POTASSIUM - SERUM 3.6 mmol/L (3.5-5.1); SODIUM 142 mmol/L (136-145); UREA NITROGEN 7 mg/dL (7-18); eGFR NON AFRICAN AMERICAN 75 mL/min (90-120)
[2017-01-26 05:30] LABS: CREATININE - SERUM 0.8 mg/dL (0.6-1.3)
--- NOTE | 2017-01-26 07:15 | NUR ---
PATIENT RECEIVED IN MID ALY POSITION ALERT AND RESTING QUIETLY. NO SIGNS OF DISTRESS NOTED. DENIES PAIN AND OTHER NEEDS. SIDE RAILS UP X2. BED IN LOW POSITION. CALL LIGHT IN REACH.
[2017-01-26 08:20] VITALS: BP 163/85
--- NOTE | 2017-01-26 08:30 | NUR ---
PATIENT ALERT IN BED. NO SIGNS OF DISTRESS NOTED. TOLERATING CLD WITHOUT DIFFICULTY. DENIES NEEDS. SIDE RAILS UP X2. BED IN LOW POSITION. CALL LIGHT IN REACH. SCD ON BILATERALLY
--- NOTE | 2017-01-26 10:00 | NUR ---
PATIENT SITTING UP IN CHAIR ALERT. STATES THAT STOMACH IS STARTING TO SETTLE AFTER ZOFRAN. DENIES NEEDS. CALL LIGHT IN REACH.
--- NOTE | 2017-01-26 10:15 | NUR ---
PATIENT IN LOW ALY POSITION WITH GUEST AT BEDSIDE. NO SIGNS OF DISTRESS NOTED. SIDE RAILS UP X2. BED IN LOW POSITION. CALL LIGHT IN REACH.
--- NOTE | 2017-01-26 12:37 | NUR ---
PATIENT SITTING UP IN CHAIR ALERT WITH FAMILY PRESENT. NO SIGNS OF DISTRESS NOTED. DENIES PAIN AND OTHER NEEDS. CALL LIGHT IN REACH.
[2017-01-26 12:47] VITALS: BP 152/102
--- NOTE | 2017-01-26 12:47 | NUR ---
NUTRITION F/U PT VISIT. UP TO CHAIR FOR CLEAR LIQUID LUNCH. TOLERATING WELL WITH NO COMPLAINTS. WILL MONITOR DIET ADVANCEMENT, PO INTAKE. RD FOLLOWING
--- NOTE | 2017-01-26 15:35 | NUR ---
ASSISTED UP TO RESTROOM THEN BACK TO BED. VOIDED WITHOUT DIFFICULTY. POSITIONED FOR COMFORT. DENIES NEEDS. FAMILY PRESENT. SCD ON BILATERALLY. SIDE RAILS UP X2. BED IN LOW POSITION. CALL LIGHT IN REACH.
[2017-01-26 15:54] VITALS: BP 160/88
--- NOTE | 2017-01-26 16:45 | NUR ---
ALERT IN BED VISITING WITH GUESTS. IVF TUBING CHANGED PER PROTOCOL. DENIES NEEDS. SIDE RAILS UP X2. BED IN LOW POSITION. CALL LIGHT IN REACH.
--- NOTE | 2017-01-26 18:35 | NUR ---
YOLI DRAIN X2 REMOVED FROM ABDOMEN. WELL TOLERATED. BILATERAL SITE COVERED WITH GAUZE AND SECURED WITH TAPE
--- NOTE | 2017-01-26 19:00 | NUR ---
REPORT RECEIVED AND ASSESSMENT COMPLETED SEE FLOWSHEET FOR FULL DETAILS. VSS. FAMILY AT BEDSIDE. DISCUSSED YOLI DRAIN REMOVAL. WILL MONITOR.
[2017-01-26 20:00] VITALS: BP 159/84
[2017-01-27] VITALS: BP 137/77
--- NOTE | 2017-01-27 01:00 | NUR ---
PT ASSISTED TO RESTROOM AT THIS TIME. NO OTHER CHANGES IN STATUS WILL CONTINUE TO MONITOR
[2017-01-27 04:00] VITALS: BP 159/82
[2017-01-27 05:10] LABS: BASOPHILS 0.3 % (0-2); EOSINOPHILS 3.1 % (0-7); HEMATOCRIT 33.5 % (36.0-48.0); HEMOGLOBIN 11.8 g/dL (12-16); IMMATURE GRANULOCYTES 4.4 % (0-5); LYMPHOCYTES 15.3 % (15-50); MCH 29.6 pg (26.0-34.0); MCHC 35.2 g/dL (31.0-37.0); MONOCYTES 8.7 % (2-11); NEUTROPHILS 68.2 % (40-80); PLATELET COUNT 390 10x3/uL (130-400); RBC 3.99 10x6/uL (4.00-5.40); RDW 15.8 % (11.5-14.5); WBC 7.8 10x3/uL (4.8-10.8)
[2017-01-27 05:25] LABS: CALCIUM 8.3 mg/dL (8.5-10.1); CHLORIDE - SERUM 107 mmol/L (98-107); CREATININE - SERUM 0.7 mg/dL (0.6-1.3); GLUCOSE 95 mg/dL (74-106); SODIUM 141 mmol/L (136-145); eGFR NON AFRICAN AMERICAN 88 mL/min (90-120)
[2017-01-27 05:32] LABS: CALC OSMOLALITY 277 mosm/kg (275-300); CARBON DIOXIDE 25.6 mmol/L (21.0-32.0); UREA NITROGEN 4 mg/dL (7-18)
--- NOTE | 2017-01-27 07:15 | NUR ---
PATIENT RECEIVED ALERT IN MID ALY POSITION. NO SIGNS OF DISTRESS NOTED. DENIES NEEDS. SIDE RAILS UP X2. BED IN LOW POSITION. CALL LIGHT IN REACH.
[2017-01-27 08:00] VITALS: BP 172/87
--- NOTE | 2017-01-27 08:28 | NUR ---
PATIENT ALERT IN MID ALY POSITION EATING BREAKFAST. TOLERATING WELL. DENIES NEEDS. SCHEDULED MEDICATION ADMINISTERED. SIDE RAILS UP X2. BED IN LOW POSITION. CALL LIGHT IN REACH. SCDS ON BILATERALLY.
--- NOTE | 2017-01-27 10:15 | NUR ---
UP AMBULATING IN HALLWAY WITH PT. NO SIGNS OF DISTRESS NOTED.
--- NOTE | 2017-01-27 12:05 | NUR ---
PATIENT ALERT IN BED. REPOSITIONED FOR COMFORT. SCHEDULED MEDICATION ADMINISTERED. DENIES NEEDS. SIDE RAILS UP X2. BED IN LOW POSITION. CALL LIGHT IN REACH.
[2017-01-27 12:26] VITALS: BP 176/96
--- NOTE | 2017-01-27 14:00 | NUR ---
ALERT IN BED WATCHING TV. DENIES NEEDS. IV TO LEFT WRIST PATENT. NO REDNESS OR INFLAMMATION NOTED. IVF AND PROTONIX DRIP INFUSING WITHOUT DIFFICULTY. SIDE RAILS UP X2. BED IN LOW POSITION. CALL LIGHT IN REACH. SCD ON BILATERALLY.
[2017-01-27 16:07] VITALS: BP 156/85
--- NOTE | 2017-01-27 16:15 | NUR ---
PATIENT ALERT IN BED TALKING ON PHONE. NO SIGNS OF DISTRESS NOTED. SIDE RAILS UP X2. BED IN LOW POSITION. CALL LIGHT IN REACH.
[2017-01-27 20:00] VITALS: BP 158/94
--- NOTE | 2017-01-27 22:50 | NUR ---
REC'D LYING IN BED. ALERT AND ORIENTED X4. DENIED PAIN AT THIS TIME. DENIED NEEDS AT THIS TIME. INSTRUCTED TO CALL IF NEEDED ANYTHING, VERBALIZED UNDERSTANDING. NO DISTRESS NOTED. BED LOW, LOCKED, CALL LIGHT IN REACH.
--- NOTE | 2017-01-27 23:47 | NUR ---
RECIEVED REPORT. ASSUMED PT CARE.
[2017-01-28] VITALS: BP 150/80
[2017-01-28 04:00] VITALS: BP 181/86
[2017-01-28 05:25] LABS: BASOPHILS 0.1 % (0-2); EOSINOPHILS 2.5 % (0-7); HEMATOCRIT 31.7 % (36.0-48.0); IMMATURE GRANULOCYTES 2.3 % (0-5); LYMPHOCYTES 24.7 % (15-50); MCH 29.3 pg (26.0-34.0); MCHC 34.7 g/dL (31.0-37.0); MCV 84.3 fL (80.0-100.0); MEAN PLATELET VOLUME 9.5 fL (7.4-10.4); MONOCYTES 8.6 % (2-11); NEUTROPHILS 61.8 % (40-80); PLATELET COUNT 442 10x3/uL (130-400); RBC 3.76 10x6/uL (4.00-5.40); RDW 15.9 % (11.5-14.5); WBC 6.8 10x3/uL (4.8-10.8)
[2017-01-28 05:42] LABS: CHLORIDE - SERUM 105 mmol/L (98-107); CREATININE - SERUM 0.7 mg/dL (0.6-1.3); GLUCOSE 89 mg/dL (74-106); SODIUM 139 mmol/L (136-145); eGFR NON AFRICAN AMERICAN 88 mL/min (90-120)
[2017-01-28 06:13] LABS: CALC OSMOLALITY 272 mosm/kg (275-300); UREA NITROGEN 2 mg/dL (7-18)
[2017-01-28 06:14] LABS: POTASSIUM - SERUM 2.7 mmol/L (3.5-5.1)
--- NOTE | 2017-01-28 07:40 | NUR ---
AWAKE AND ALERT WITH HOB AT 35 DEGREES. RESPIRATIONS EVEN AND NON LABORED. IV INFUSING TO LEFT FOREARM WITH NS INFUSING AT 100ML/HR, PROTONIX INFUSING AT 10ML/HR AND KCL 10 MEQ INFUSING AT 60 ML/HR. NO REDNESS OR TENDERNESS NOTED. CALL LIGHT IN REACH. BED IN LOWEST POSITION WITH WHEELS LOCKED. WILL CONTINUE WITH PLAN OF CARE.
[2017-01-28 07:51] VITALS: BP 173/91
--- NOTE | 2017-01-28 08:22 | NUR ---
SCHEDULED MEDICATIONS ADMINISTERED AT THIS TIME PER ORDER. [employer] DISCONTINUED AND INSTRUCTED PT THAT SHE HAD PAIN MEDICATION BY MOUTH THAT SHE COULD REQUEST NEEDED. PT VERBALIZED UNDERSTANDING AND DENIED NEEDING PAIN MEDICATION AT THIS TIME. CALL LIGHT IN REACH, WILL CONTINUE WITH PLAN OF CARE.
[2017-01-28 12:10] VITALS: BP 142/85
[2017-01-28] MEDS ORDERED: LEVAQUIN500 MG PO (14:14)
[2017-01-28] MEDS ORDERED: FLAGYL500 MG PO (14:15)
[2017-01-28] MEDS ORDERED: PROTONIX40 MG PO (14:17)
--- NOTE | 2017-01-28 15:23 | NUR ---
PATIENT IS DISCHARGING HOME, OFFERED HOME HEALTH AND SHE REFUSED IT. IS AT BEDSIDE WILL BE THE ONE TO DRIVE HER HOME
--- NOTE | 2017-01-28 15:41 | NUR ---
DISCHARGE PAPERS AND INSTRUCTIONS GIVEN TO PT AND , QUESTIONS ANSWERED, IV REMOVED TIP INTACT, DISCHARGED PER WC WITH BELONGINGS
--- NOTE | 2017-03-15 06:54 | DS ---
PATIENT:PAULINO GONSALVES :46 MEDICAL RECORD: [id number] DISCHARGE SUMMARY ADMISSION DATE: 01/18/17 DISCHARGE DATE: 01/28/17 DATE OF ADMISSION: 01/18/2017 DATE OF DISCHARGE: 01/28/2017 CONDITION ON DISCHARGE: Improved. ADMITTING DIAGNOSIS: Abdominal pain with leukocytosis, felt to be secondary to perforated viscus, small-bowel obstruction, diverticulitis. DISCHARGE DIAGNOSES: Diverticulitis with perforation and abscess, ileus, hypertension, and hyperlipidemia. HOSPITAL COURSE: The patient is a 66-year-old female, who for the past few days had decrease in appetite, low-grade fever, and also felt diffuse lower abdominal discomfort. PHYSICAL EXAMINATION: VITAL SIGNS: In the office; her weight was 156, blood pressure 122/70, pulse 76, respirations 16, temperature was 98.3. GENERAL: She was alert. She is oriented times 3, in [id number] distress. HEART: She had a regular rate and rhythm without any murmurs, gallops, or rubs. LUNGS: Clear to auscultation. ABDOMEN: She did have some right lower quadrant tenderness with suprapubic tenderness present. HOSPITAL COURSE: Her white count was elevated at 15,000 with a left shift. She was sent over for a computed tomography scan. The computed tomography scan revealed intraperitoneal free air concerning for perforated viscus. No leakage of contrast was noted. Therefore, the patient was admitted. Surgical consultation was obtained. She was placed on intravenous hydration as well as intravenous antibiotics as well. She was seen in consultation by Dr. Dinero. She did undergo exploratory laparotomy with abdominal lavage and placement of a drain on 01/19/2017. Nasogastric tube was placed for decompression of the ileus. All intravenous antibiotics as well as drains were continued. She was kept nothing by mouth. On Wednesday following her admission, she did have an upper GI. The upper GI showed no evidence of duodenal leak or any other bowel leak. Normal mucosa pattern was seen in the stomach and the duodenum. On 01/28/2017, the patient was afebrile. Her vital signs are stable. Her white count was 6, hemoglobin 11, hematocrit 31.7, platelets 442. Her potassium was 2.7 and this was corrected prior to discharge, her sodium was 139, chloride was 105, CO2 was 27. BUN was 2 and creatinine 0.7. She had been tolerating her diet well. Therefore, the patient was felt to be suitable for discharge. She was discharged home. MEDICATIONS: Hydrochlorothiazide 12.5 mg 1 p.o. everyday, Pravachol 20 mg once a day, Lopressor 50 mg p.o. b.i.d., Cozaar 100 mg p.o. daily, Synthroid 75 mcg once a day, vitamin D3 2000 international units daily, vitamin B12 1000 mcg daily, 1 multivitamin daily, Flagyl 500 mg p.o. q. 8h., Levaquin 500 mg once a day and will complete a 14-day course, Protonix 40 mg once a day. DIET: Her diet was a regular diet. DISCHARGE SUMMARY REPORT [id number] PAULINO GONSALVES FOLLOWUP: She will follow up with me in approximately 1 week. TRANSINT:[id number] Voice Confirmation ID: [id number] DOCUMENT ID: [id number] TANYA BOLDEN MD at 0654 CC: [id number] DICTATION DATE: 03/14/17 114 [employer] B[employer]IST[employer] EXPERT: 03/14/17 [id number] DIS IN 01/28/17 [facility] [address] [place] [address]
== END 2017-01-28 15:44 | disposition home or self-care (01) | DRG 392 ==
LOC: D.CT 14:23 → D.MS 17:25
PROVIDERS: Family Medicine; Surgery; ADMIT Family Medicine
PROC: 3E1M38Z Irrigation of Peritoneal Cavity using Irrigating Substance, Percutaneous Approach (ICD-10-PCS; principal; 2017-01-18)
PROC: 0D9W40Z Drainage of Peritoneum with Drainage Device, Percutaneous Endoscopic Approach (ICD-10-PCS; 2017-01-18)
PROC: 0T9B70Z Drainage of Bladder with Drainage Device, Via Natural or Artificial Opening (ICD-10-PCS; 2017-01-18)
PROC: 0D9670Z Drainage of Stomach with Drainage Device, Via Natural or Artificial Opening (ICD-10-PCS; 2017-01-21)
DX: K57.20 Diverticulitis of large intestine with perforation and abscess without bleeding (principal); K56.7 Ileus, unspecified; I10 Essential (primary) hypertension; E78.5 Hyperlipidemia, unspecified

== ENCOUNTER → 2017-11-25 18:22 | Outpatient (CLI) | payer OTHER | END | disposition home or self-care (01) | LOC: D.MAMMO 11:00 | DX: Z12.31 Encounter for screening mammogram for malignant neoplasm of breast (principal) ==

== ENCOUNTER 2019-02-21 08:00 | Outpatient (CLI) | payer OTHER | END 2019-02-21 23:59 | disposition home or self-care (01) | LOC: D.MAMMO 08:00 | PROVIDERS: ATTEND Family Medicine | DX: Z12.31 Encounter for screening mammogram for malignant neoplasm of breast (principal) ==